=== PATIENT | male | born 1995 | race African-American/Black ===

== ENCOUNTER 2017-03-07 19:32 | Emergency (ER) | payer SELFPAY | END 2017-03-07 22:52 | disposition home or self-care (01) | LOC: CED 19:32 → CFTX 19:32 | DX: L02.215 Cutaneous abscess of perineum (principal); F17.210 Nicotine dependence, cigarettes, uncomplicated | CPT/HCPCS: 10060; 99283 ==

== ENCOUNTER 2017-05-05 04:44 | Emergency (ER) | payer SELFPAY | END 2017-05-05 05:08 | disposition home or self-care (01) | LOC: CED 04:44 | DX: H60.332 Swimmer's ear, left ear (principal); H62.42 Otitis externa in other diseases classified elsewhere, left ear | CPT/HCPCS: 99283 ==